=== PATIENT | male | born 1980 | race Caucasian/White ===

== ENCOUNTER 2021-04-05 20:32 | Inpatient (IN) ==
[2021-04-05] MEDS ORDERED: *HR* LORazepam 1 MG TABLET PO PRN (20:50)
[2021-04-05] MEDS ORDERED: *HR* LORazepam 2 MG/ML VIAL IM PRN (20:50)
[2021-04-05] MEDS ORDERED: Ibuprofen 400 MG TABLET PO PRN (20:50)
[2021-04-05] MEDS ORDERED: MOM Conc 10 ML UD.LIQ PO PRN (20:50)
[2021-04-05] MEDS ORDERED: haloperidoL 5 MG TABLET PO PRN (20:50)
[2021-04-05] MEDS ORDERED: Acetaminophen 325 MG TABLET PO PRN (20:50)
[2021-04-05] MEDS ORDERED: Haloperidol Lactate 5 MG/ML VIAL IM PRN (20:50)
[2021-04-05] MEDS ORDERED: Mag Hydrox/Al Hydrox/Simeth 30 ML UDC PO PRN (20:50)
[2021-04-05] MEDS ORDERED: Divalproex (12 HR) 250 MG TABLET PO SCH (21:00)
[2021-04-05] MEDS: hydrOXYzine pamoate 25 MG CAPSULE PO PRN (21:28)
[2021-04-06] MEDS: lisinopriL 10 MG TABLET PO SCH (12:52)
[2021-04-06] MEDS: OLANZapine 5 MG TAB.RAPDIS PO SCH (20:47)
[2021-04-06] MEDS ORDERED: Divalproex (12 HR) 250 MG TABLET PO SCH (21:00)
[2021-04-07] MEDS: lisinopriL 10 MG TABLET PO SCH (09:11)
[2021-04-07] MEDS: OLANZapine 5 MG TAB.RAPDIS PO SCH (21:14)
[2021-04-07] MEDS: Divalproex (12 HR) 500 MG TABLET PO SCH (21:14)
[2021-04-08] MEDS: lisinopriL 10 MG TABLET PO SCH (09:11)
[2021-04-08] MEDS: Divalproex (12 HR) 500 MG TABLET PO SCH (20:46)
[2021-04-08] MEDS: OLANZapine 5 MG TAB.RAPDIS PO SCH (20:46)
[2021-04-09] MEDS: lisinopriL 10 MG TABLET PO SCH (09:18)
[2021-04-09] MEDS: Divalproex (24 HR) 500 MG TABLET PO SCH (20:42)
[2021-04-09] MEDS: OLANZapine 5 MG TAB.RAPDIS PO SCH (20:42)
[2021-04-09] MEDS: QUEtiapine Fumarate 100 MG TABLET PO PRN (21:46)
[2021-04-10] MEDS: lisinopriL 10 MG TABLET PO SCH (08:56)
[2021-04-10] MEDS: hydrOXYzine pamoate 25 MG CAPSULE PO PRN ×2 (10:34→20:42)
[2021-04-10] MEDS: OLANZapine 5 MG TAB.RAPDIS PO SCH ×2 (12:58→20:42)
[2021-04-10 18:10] LABS: Alanine Aminotransferase 18 Units/L (7-52); Albumin 5.2 g/dL (3.5-5.7); Albumin/Globulin Ratio 1.7 (1.1-2.2); Alkaline Phosphatase 60 Units/L (34-104); Aspartate Amino Transferase 22 Units/L (13-39); BUN/Creatinine Ratio 15 (6-26); Bilirubin,Total 0.3 mg/dL (0.3-1.0); Blood Urea Nitrogen 14 mg/dL (6-20); Calcium 10.1 mg/dL (8.6-10.3); Carbon Dioxide 31 mEq/L (23-29); Chloride 101 mEq/L (98-107); Globulin 3.1 g/dL (2.4-3.5); Glucose 85 mg/dL (70-105); Osmolality,Calculated 290 (280-300); Potassium 4.4 mEq/L (3.5-5.1); Sodium 140 mEq/L (136-145); Total Protein 8.3 g/dL (6.4-8.9); eGFR For African Americans > 60 (> 60); eGFR For Non-African Americans > 60 (> 60)
[2021-04-10 18:23] LABS: Thyroid Stimulating Hormone 1.068 mcIU/mL (0.340-5.600)
[2021-04-10] MEDS: Divalproex (24 HR) 500 MG TABLET PO SCH (20:41)
[2021-04-10] MEDS: QUEtiapine Fumarate 100 MG TABLET PO PRN (20:42)
[2021-04-11] MEDS: lisinopriL 10 MG TABLET PO SCH (09:34)
[2021-04-11] MEDS: OLANZapine 5 MG TAB.RAPDIS PO SCH ×2 (09:34→20:48)
[2021-04-11] MEDS: QUEtiapine Fumarate 100 MG TABLET PO PRN (20:48)
[2021-04-11] MEDS: hydrOXYzine pamoate 25 MG CAPSULE PO PRN (20:48)
[2021-04-11] MEDS: Divalproex (24 HR) 500 MG TABLET PO SCH (20:48)
[2021-04-12] MEDS: lisinopriL 10 MG TABLET PO SCH (08:58)
[2021-04-12] MEDS: OLANZapine 5 MG TAB.RAPDIS PO SCH ×2 (08:58→20:59)
[2021-04-12] MEDS: Divalproex (24 HR) 500 MG TABLET PO SCH (20:59)
[2021-04-12] MEDS: QUEtiapine Fumarate 100 MG TABLET PO PRN (21:11)
[2021-04-13 09:14] VITALS: BP 121/85
[2021-04-13] MEDS: lisinopriL 10 MG TABLET PO SCH (11:05)
[2021-04-13] MEDS: OLANZapine 5 MG TAB.RAPDIS PO SCH (11:07)
[2021-04-13] MEDS ORDERED: Divalproex (24 HR) 500 MG TABLET PO SCH (21:00)
== END 2021-04-13 16:45 | disposition home or self-care (01) | DRG 753 ==
LOC: INTOOBSV 20:32 → 1ANU 20:32
PROVIDERS: ADMIT Psychiatry & Neurology Psychiatry; ATTEND Psychiatry & Neurology Psychiatry